=== PATIENT | female | born 1955 | race Caucasian/White ===

== ENCOUNTER 2016-08-29 13:35 | Observation (INO) | payer BC ==
[~2016-08-29] VITALS: Ht 160 cm; Wt 60.5 kg
[~2016-08-29 13:35] MED LIST: MULT-240 PO
[2016-08-29] MEDS ORDERED: SODIUM CHLORIDE 0.9% 1000ML 1,000 ML IV ONE (14:18)
[2016-08-29] MEDS ORDERED: SODIUM CHLORIDE 0.9% 1000ML 1,000 ML IV STA (14:18)
[2016-08-29 14:25] LABS: HEMATOCRIT 39.9 % (37-47); MEAN CELL VOLUME 82.6 fL (80-100); MEAN CORPUSCULAR HEMOGLOBIN 28.2 pg (25-34); MEAN CORPUSCULAR HGB CONC 34.1 g/dl (32-36); MEAN PLATELET VOLUME 11.3 fL (7.4-10.4); PLATELET COUNT 234 K/uL (130-400); RED BLOOD COUNT 4.83 M/uL (4.2-5.4); WHITE BLOOD COUNT 18.96 K/uL (4.8-10.8)
[2016-08-29 14:32] LABS: BLOOD UREA NITROGEN 15 mg/dl (7-18); CALCIUM 9.5 mg/dl (8.5-10.1); CARBON DIOXIDE 28 mmol/L (21-32); CHLORIDE 105 mmol/L (98-107); GLUCOSE 121 mg/dl (70-99); POTASSIUM 3.6 mmol/L (3.5-5.1); SODIUM 142 mmol/L (136-145)
[2016-08-29 14:33] LABS: BUN/CREATININE RATIO 11.5 (10-20)
[2016-08-29 14:42] LABS: ALKALINE PHOSPHATASE 94 U/L (45-117); ALT/SGPT 23 U/L (12-78); AST/SGOT 18 U/L (15-37)
--- NOTE | 2016-08-29 14:52 | DIAGNOSTIC IMAGING REPORT ---
CHEST ONE VIEW PORTABLE CLINICAL HISTORY: CHEST PAIN dyspnea COMPARISON STUDY: No previous studies for comparison. FINDINGS: The bones soft tissues and hemidiaphragms are normal. The cardiomediastinal silhouette is normal. The lungs are clear. The pulmonary vasculature is normal. IMPRESSION: Negative chest. Electronically signed by: Ghassan Huynh M.D. 08/29/2016 2:51 PM Dictated Date/Time: 08/29/2016 2:51 PM
--- NOTE | 2016-08-29 15:05 | DIAGNOSTIC IMAGING REPORT ---
HEAD CT NONCONTRAST CT DOSE: 729.78 mGycm HISTORY: Mental status change syncope TECHNIQUE: Multiaxial CT images of the head were performed without the use of intravenous contrast. Comparison: None. Findings: Mild mucosal thickening posterior ethmoid air cells are main sinuses are clear The calvarium and skull base are intact. The ventricles and sulci are within normal limits. There is no mass, hematoma, midline shift, or acute infarct. Impression: No acute intracranial abnormality. Electronically signed by: Ghassan Huynh M.D. 08/29/2016 3:04 PM Dictated Date/Time: 08/29/2016 3:02 PM
[2016-08-29 15:10] LABS: BASO ABS # 0.49 K/uL (0-0.2); BASOPHIL % 2.6 %; COMPLETE YES; EOSINOPHIL % 2.6 %; LYMPH ABS # 2.12 K/uL (1.2-3.4); LYMPHOCYTE % 11.2 %; META ABS # 1.31 K/uL (0-0); METAMYELOCYTE % 6.9 %; MYELOCYTE % 3.4 %; NEUTROPHILS % 73.3 %
[2016-08-29] MEDS ORDERED: ONDANSETRON INJ 2 MG/ML 2 ML VIAL IV STA (15:24)
[2016-08-29] MEDS ORDERED: MULT-506 PO (16:29)
[2016-08-29] MEDS ORDERED: PROMETHAZINE HCL INJ 12.5 MG in SODIUM CHLORIDE 0.9% 50ML 50 ML IV PRN (16:30)
[2016-08-29] MEDS ORDERED: ACETAMINOPHEN 325 MG TAB PO PRN (16:30)
--- NOTE | 2016-08-29 16:38 | DIAGNOSTIC IMAGING REPORT ---
CT SCAN OF THE CERVICAL SPINE CLINICAL HISTORY: Trauma. Neck pain. COMPARISON STUDY: No priors. TECHNIQUE: CT scan of the cervical spine is performed from the skull base to the upper thoracic spine. Images are reviewed in the axial, sagittal, and coronal planes. IV contrast was not administered for this examination. CT DOSE: 211.80 mGy.cm FINDINGS: Skeletal structures: The skeletal structures are osteopenic. There is no evidence of fracture or subluxation involving the cervical spine. Vertebral body height is maintained. There is minimal anterolisthesis at C3-C4. Alignment is otherwise preserved. There is straightening of the cervical lordosis. The odontoid process and lateral masses are intact. The atlantoaxial articulation is preserved noting mild productive degenerative change. The spinous processes appear intact. Anterior osteophytes are seen from C4 to C7. Degenerative sclerosis is noted at C5-C6. Mild multilevel facet arthropathy is observed. Intervertebral discs: Moderate degenerative disc space narrowing seen from C4 -C5 through C6-C7. The remaining disc spaces are well maintained. Central canal: Posterior disc osteophyte complexes at C4-C5, C5-C6, and C6-C7 likely contribute to mild acquired compromise of the central canal. Soft tissues: The prevertebral and paraspinous soft tissues are within normal limits. Calvarium: The visualized calvarium at the skull base appears intact. Brain parenchyma: Partially visualized brain parenchyma the skull base is within normal limits. Sinuses and mastoids: The visualized paranasal sinuses are clear. The mastoid air cells are well pneumatized. Lung apices: Clear as visualized. IMPRESSION: 1. There is no evidence of fracture or subluxation involving the cervical spine. 2. Osteopenia and spondylotic change as above. Electronically signed by: Andres Rutledge M.D. 08/29/2016 4:36 PM Dictated Date/Time: 08/29/2016 4:34 PM
--- NOTE | 2016-08-29 16:53 | EMERGENCY ROOM VISIT NOTE ---
History Report prepared by Matty: Elva Catalan Under the Supervision of: Dr. Jeffy Mcclendon M.D. 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 She states that she donated one unit of blood earlier today. The patient felt well prior to giving blood. She states that she was walking downstairs to get a sandwich when she "didn't feel right." She sat down then she experienced nausea and vomiting. She doesn't remember what happened next and she woke up on the floor. The patient does not remember hitting her head, but she does think that she experienced LOC. No one witnessed the event. She denies biting her tongue or experiencing urinary incontinence. The patient denies being in any pain currently. She denies headache, neck pain, chest pain, shortness of breath, and numbness or weakness. The patient's adds that the patient had a bowel movement here and it was normal. The patient that she still does not feel right and adds that she is anxious from the feeling. The patient's states that she is very active and healthy. He also states that she has given blood many times in the past without any difficulties. 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 A total of 10 systems reviewed and were otherwise negative. Past Medical & Surgical Medical Problems: (1) CKD (chronic kidney disease), stage III Surgical Problems: (1) H/O tubal ligation (2) History of appendectomy (3) [place] teeth extracted Old medical records were reviewed. Nurse's notes were reviewed and I agree with. Denies history cardiac disease or neurologic problems Family History No pertinent family history Social History Smoking Status: Former Smoker Drug Use: none Marital Status: Housing Status: lives with family Current/Historical Medications Scheduled Multivitamin (Multivitamin), 1 TAB PO DAILY Allergies Coded Allergies: Codeine (Verified Allergy, Unknown, ., 09/10/14) Physical Exam Vital Signs Date Time Temp Pulse Resp B/P Pulse Ox O2 Delivery O2 Flow Rate FiO2 08/29/16 17:02 08/29/16 16:59 60 122/68 75 128/80 69 125/79 08/29/16 15:18 63 17 100/56 99 Room Air 08/29/16 14:39 53 16 115/65 98 Room Air 08/29/16 13:52 56 08/29/16 13:50 36.7 50 16 114/50 100 Room Air Physical Exam General: Well developed well nourished mildly ill-appearing older female complaining that she doesn't feel well but in no respiratory distress, breathing comfortably on room air. Normal speech HEENT: Normal cephalic atraumatic. Pupils are equal round and reactive to light. Scleara anicteric. Extraocular movements are intact. Oropharynx is pink with moist mucous membranes. No swelling of the mouth lips or tongue. Neck: Supple with a midline trachea. No meningeal signs or stiffness, no JVD or bruits. No Stridor. Chest: Clear to auscultation bilaterally. No wheezes or rhonchi. No increased work of breathing. Heart: regular rate and rhythm. Abdomen: Soft nontender, nondistended without rebound guarding or rigidity. Extremities: No cyanosis clubbing or edema. No calf tenderness or assymetry Spine/Back. Non tender to palpation. No CVA tenderness Skin: Good turgor without rashes. Neurologic exam: Cranial nerves two through 12 are intact. Motor and sensation are intact and symmetrical throughout. Medical Decision & Procedures ER Provider Diagnostic Interpretation: X ray results as stated below per my interpretation and radiologist interpretation. Other radiology results as stated below per my review and radiologist interpretation: CHEST ONE VIEW PORTABLE IMPRESSION: Negative chest. Electronically signed by: Ghassan Huynh M.D. 08/29/2016 2:51 PM Dictated Date/Time: 08/29/2016 2:[address] NONCONTRAST Impression: No acute intracranial abnormality. Electronically signed by: Ghassan Huynh M.D. 08/29/2016 3:04 PM Dictated Date/Time: 08/29/2016 3:[address] SCAN OF THE CERVICAL SPINE IMPRESSION: 1. There is no evidence of fracture or subluxation involving the cervical spine. 2. Osteopenia and spondylotic change as above. Electronically signed by: Andres Rutledge M.D. 08/29/2016 4:36 PM Dictated Date/Time: 08/29/2016 4:34 PM Laboratory Results 08/29/16 13:50 Red Blood Count 4.83, Mean Corpuscular Volume 82.6, Mean Corpuscular Hemoglobin 28.2, Mean Corpuscular Hemoglobin Concent 34.1, Mean Platelet Volume 11.3 08/29/16 13:50 Test 08/29/16 13:50 08/29/16 14:30 08/29/16 16:40 White Blood Count 18.96 K/uL (4.8-10.8) Red Blood Count 4.83 M/uL (4.2-5.4) Hemoglobin 13.6 g/dL (12.0-16.0) Hematocrit 39.9 % (37-47) Mean Corpuscular Volume 82.6 fL (80-100) Mean Corpuscular Hemoglobin 28.2 pg (25-34) Mean Corpuscular Hemoglobin Concent 34.1 g/dl (32-36) Platelet Count 234 K/uL (130-400) Mean Platelet Volume 11.3 fL (7.4-10.4) RDW Standard Deviation 42.9 fL (36.4-46.3) RDW Coefficient of Variation 14.2 % (11.5-14.5) Neutrophils % (Manual) 73.3 % Lymphocytes % (Manual) 11.2 % Eosinophils % (Manual) 2.6 % Basophils % (Manual) 2.6 % Metamyelocytes % 6.9 % Myelocytes % 3.4 % Neutrophils # (Manual) 13.90 K/uL (1.4-6.5) Total Absolute Neutrophils 13.90 K/uL (1.4-6.5) Lymphocytes # (Manual) 2.12 K/uL (1.2-3.4) Total Absolute Lymphocytes 2.12 K/uL (1.2-3.4) Eosinophils # (Manual) 0.49 K/uL (0-0.5) Basophils # (Manual) 0.49 K/uL (0-0.2) Metamyelocytes # 1.31 K/uL (0-0) Myelocytes # 0.64 K/uL (0-0) Anion Gap 9.0 mmol/L (3-11) Est Creatinine Clear Calc Drug Dose 38.1 ml/min Estimated GFR () 51.6 Estimated GFR (Non- 44.6 BUN/Creatinine Ratio 11.5 (10-20) Calcium Level 9.5 mg/dl (8.5-10.1) Total Bilirubin 0.4 mg/dl (0.2-1) Direct Bilirubin < 0.1 mg/dl (0-0.2) Aspartate Amino Transf (AST/SGOT) 18 U/L (15-37) Alanine Aminotransferase (ALT/SGPT) 23 U/L (12-78) Alkaline Phosphatase 94 U/L (45-117) Total Protein 6.8 gm/dl (6.4-8.2) Albumin 3.9 gm/dl (3.4-5.0) Lipase 178 U/L (73-393) Bedside Troponin I 0.020 ng/ml (0-0.045) Urine Color YELLOW Urine Appearance TURBID (CLEAR) Urine pH >= 9.0 (4.5-7.5) Urine Specific [place] 1.009 (1.000-1.030) Urine Protein NEG (NEG) Urine Glucose (UA) NEG (NEG) Urine Ketones NEG (NEG) Urine Occult Blood NEG (NEG) Urine Nitrite NEG (NEG) Urine Bilirubin NEG (NEG) Urine Urobilinogen NEG (NEG) Urine Leukocyte Esterase TRACE (NEG) Urine WBC (Auto) 5-10 /hpf (0-5) Urine RBC (Auto) 0-4 /hpf (0-4) Urine Hyaline Casts (Auto) 1-5 /lpf (0-5) Urine Epithelial Cells (Auto) >30 /lpf (0-5) Urine Bacteria (Auto) NEG (NEG) Urine Renal Epithelial Cells /lpf (0-5) Laboratory studies as stated above per my review. Medications Administered Medications (Trade) Dose Ordered Sig/Kulwinder Route Start Time Stop Time Status Last Admin Dose Admin Sodium Chloride 1,000 ml @ 999 mls/hr Q1H1M STAT IV 08/29/16 14:18 08/29/16 15:18 DC 08/29/16 14:18 999 MLS/HR Sodium Chloride (Nss 1000ml) 1,000 ml @ 150 mls/hr Q6H40M ONCE IV 08/29/16 14:18 2/1/17 20:57 08/29/16 14:18 150 MLS/HR Ondansetron HCl (Zofran Inj) 4 mg NOW STAT IV 08/29/16 15:24 08/29/16 15:25 DC 08/29/16 15:32 4 MG ECG Indication: syncope Rate (beats per minute): 54 Rhythm: sinus bradycardia Findings: no acute ischemic change, prolonged QT (mild) Comparison ECG Date: no prior available ED Course 1407: Past medical records reviewed. The patient was evaluated in room B2, and a complete history and physical examination were performed. 1418: Ordered Sodium Chloride 1000 ml @ 150 mls/hr IV, Sodium Chloride 1000 ml @ 999 mls/hr IV 1524: Ordered Zofran Inj 4 mg IV 1528: I reassessed the patient. She is getting her EKG done currently. 1544: Upon reevaluation, the patient is resting comfortably. She feels a little better, but now has pain in her neck. I discussed the results and treatment plan with the patient. She verbalized agreement of the treatment plan. The patient will be evaluated for further management. 1553: I discussed the patient's case with Manasa Crane. She is going to evaluate the patient for further management. Medical Decision Differentials include, but are not limited to; syncope, arrhythmia, anemia, trauma, intracranial process, electrolyte or metabolic abnormality. This patient comes in as described above. She was placed in room B2. She is here for treatment and evaluation of what sounds like a syncopal episode. She gave blood and then went to for coffee passed out she may have hit her head or neck. She felt very ill upon arrival she felt fine in the morning prior to giving blood. She's never had anything like this before and she has given blood multiple times. IV access established and she was given an IV normal saline bolus and hourly rate of IV normal saline. Her vital signs remained stable. EKG does not suggest acute coronary syndrome or arrhythmia. Her QTc is mildly prolonged and I have no o ld EKG for comparison. Her troponin is not elevated. White count is elevated at 18. This could be a stress reaction and I cannot 100% rule out infection but she's had no infectious type symptoms prior and is afebrile chest x-ray was unremarkable and does not suggest congestive heart failure, pneumonia, or pneumothorax. CAT scan of her head and neck were unremarkable and there is no traumatic or acute process seen. She has started to feel better after fluids. I do think she needs to be admitted for observation and to rule out arrhythmia or other etiology. I have discussed case with the [facility] team and they will see her in the ER. Consults Time Called: 1550 Consulting Physician: Manasa Crane Returned Call: 1557 I discussed the patient's case with Manasa Crane. She is going to evaluate the patient for further management. Impression Primary Impression: Syncope Scribe Attestation The scribe's documentation has been prepared under my direction and personally reviewed by me in its entirety. I confirm that the note above accurately reflects all work, treatment, procedures, and medical decision making performed by me. Departure Information Dispostion Being Evaluated By Hospitalist Referrals Lucila Claudio D.O. (PCP) Patient Instructions My [facility] Problem Qualifiers Primary Impression: Syncope Syncope type: unspecified Qualified Codes: R55 - Syncope and collapse
--- NOTE | 2016-08-29 17:00 | History and Physical ---
History & Physical Date & Time of Service: Aug 29, 2016 at 16:43 Chief Complaint: Passed Out Primary Care Physician: Lucila Claudio D.O. History of Present Illness 61 year old female who presents to the ER for evaluation of a syncopal event. Patient donated blood today which she reports she does on a routine basis ( about every 3 months). Patient reports she woke up this morning feeling in her usual state of health. She ate breakfast and then went to donate blood. She reports she had something to eat after donating and reports that after she stood up she did not feel well. She felt very lightheaded. She sat down on the stool and the next thing she knew she woke up on the floor. She reports she was very clammy. She also had nausea and had 2 episodes of vomiting. She denies loss of bowel or bladder function. No reported seizure like activity. She denies associated chest pain or shortness of breath. Reports she has been feeling well recently. No fever or chills. Denies abdominal pain or diarrhea. No urinary symptoms. In the ER, vitals are stable. WBC is 18K without obvious source of infection. Head CT is negative. Creat is 1.3 (baseline 1.0-1.1). Patient was given IVF and Zofran. Past Medical/Surgical History Medical Problems: (1) CKD (chronic kidney disease), stage III Status: Chronic Surgical Problems: (1) H/O tubal ligation Status: Chronic (2) History of appendectomy Status: Chronic (3) [place] teeth extracted Status: Chronic Family History no family history of premature CAD, DM, or CVA Social History Smoking Status: Former Smoker Alcohol Use: occasionally Immunizations History of Influenza Vaccine: Yes Influenza Vaccine Date: May 02, 2016 History of Tetanus Vaccine?: Yes Tetanus Immunization Date: Jul 15, 2008 Multi-Drug Resistant Organisms History of MDRO: No Allergies Coded Allergies: Codeine (Verified Allergy, Unknown, ., 09/10/14) Home Medications Scheduled Multivitamin (Multivitamin), 1 TAB PO DAILY Review of Systems 10 point review of systems was completed with the pertinent positives and negatives noted per the HPI Physical Exam Vital Signs Date Time Temp Pulse Resp B/P Pulse Ox O2 Delivery O2 Flow Rate FiO2 08/29/16 15:18 63 17 100/56 99 Room Air 08/29/16 14:39 53 16 115/65 98 Room Air 08/29/16 13:52 56 08/29/16 13:50 36.7 50 16 114/50 100 Room Air General Appearance: no apparent distress Head: normocephalic Eyes: normal inspection ENT: hearing grossly normal Neck: supple, no JVD Respiratory/Chest: lungs clear, normal breath sounds, no respiratory distress Cardiovascular: regular rate, rhythm, no edema, normal peripheral pulses Abdomen/GI: normal bowel sounds, non tender, soft Extremities/Musculoskelatal: normal inspection, no calf tenderness Neurologic/Psych: no motor/sensory deficits, alert, normal mood/affect, oriented x 3 Skin: normal color, warm/dry Diagnostics Laboratory Results Results Past 24 Hours Test 08/29/16 13:50 08/29/16 14:30 Range/Units White Blood Count 18.96 4.8-10.8 K/uL Red Blood Count 4.83 4.2-5.4 M/uL Hemoglobin 13.6 12.0-16.0 g/dL Hematocrit 39.9 37-47 % Mean Corpuscular Volume 82.6 80-100 fL Mean Corpuscular Hemoglobin 28.2 25-34 pg Mean Corpuscular Hemoglobin Concent 34.1 32-36 g/dl Platelet Count 234 130-400 K/uL Mean Platelet Volume 11.3 7.4-10.4 fL RDW Standard Deviation 42.9 36.4-46.3 fL RDW Coefficient of Variation 14.2 11.5-14.5 % Neutrophils % (Manual) 73.3 % Lymphocytes % (Manual) 11.2 % Eosinophils % (Manual) 2.6 % Basophils % (Manual) 2.6 % Metamyelocytes % 6.9 % Myelocytes % 3.4 % Neutrophils # (Manual) 13.90 1.4-6.5 K/uL Total Absolute Neutrophils 13.90 1.4-6.5 K/uL Lymphocytes # (Manual) 2.12 1.2-3.4 K/uL Total Absolute Lymphocytes 2.12 1.2-3.4 K/uL Eosinophils # (Manual) 0.49 0-0.5 K/uL Basophils # (Manual) 0.49 0-0.2 K/uL Metamyelocytes # 1.31 0-0 K/uL Myelocytes # 0.64 0-0 K/uL Sodium Level 142 136-145 mmol/L Potassium Level 3.6 3.5-5.1 mmol/L Chloride Level 105 98-107 mmol/L Carbon Dioxide Level 28 21-32 mmol/L Anion Gap 9.0 3-11 mmol/L Blood Urea Nitrogen 15 7-18 mg/dl Creatinine 1.30 0.60-1.20 mg/dl Est Creatinine Clear Calc Drug Dose 38.1 ml/min Estimated GFR () 51.6 Estimated GFR (Non- 44.6 BUN/Creatinine Ratio 11.5 10-20 Random Glucose 121 70-99 mg/dl Calcium Level 9.5 8.5-10.1 mg/dl Total Bilirubin 0.4 0.2-1 mg/dl Direct Bilirubin < 0.1 0-0.2 mg/dl Aspartate Amino Transf (AST/SGOT) 18 15-37 U/L Alanine Aminotransferase (ALT/SGPT) 23 12-78 U/L Alkaline Phosphatase 94 45-117 U/L Total Protein 6.8 6.4-8.2 gm/dl Albumin 3.9 3.4-5.0 gm/dl Lipase 178 73-393 U/L Bedside Troponin I 0.020 0-0.045 ng/ml Microbiology Results 08/29/16 Blood Culture, [place] Batch Pending 08/29/16 Blood Culture, [place] Batch Pending Diagnostic Radiology CT Head Impression: No acute intracranial abnormality. CXR IMPRESSION: Negative chest. CT C-SPINE IMPRESSION: 1. There is no evidence of fracture or subluxation involving the cervical spine. 2. Osteopenia and spondylotic change as above. Impression Assessment and Plan SYNCOPE - admit to tele - patient presenting with syncopal event shortly after donating blood; nothing in the history to suggest seizure like activity - suspect vasovagal vs orthostasis/hypovolemia - creat mildly bumped at 1.3 (baseline 1.0 - 1.1), will check orthostatic BPs and give IVF - no acute ST changes on EKG, prolonged QTC noted - continue to monitor on tele - mild bradycardia noted, however at baseline per clinic records - will continue to cycle cardiac enzymes, check resting echo - head CT negative LEUKOCYTOSIS - likely stress induced - no obvious source for infection currently; U/A pending - obtain urine and blood cultures CKD STAGE III - baseline creat 1.0 - 1.1 - 1.3 today - IVF, follow up renal functions in the AM DVT PROPHYLAXIS - SCDs DISPO - The patient will be placed as observation status for now until further work up is complete. ATTENDING ADDENDUM care coordinated with ISI Justin please refer to her notes for full details, I agree with her notes patient seen and examined, records reviewed by myself as well on exam, patient seen resting in bed with Dylan at bedside states she feels much better since admission not lightheaded anymore when standing denies fever/chills, chest pain, palpitations, dizziness, nausea tolerated clears well in good spirits no other symptoms VS noted and reviewed oriented x 3, not in distress, speaks in sentences with no effort nor accessory muscle use normal rate, regular rhythm, no murmurs clear breath sounds bilaterally non distended, soft, nontender mild hematoma left hand dorsal aspect no bipedal edema, erythema, warmth no neuro deficits WBC 18.9 crea 1.3 ASSESSMENT/PLAN> SYNCOPE preceded with lightheadedness, nausea after blood donation - likely orthostasis, volume depletion r/o underlying infection r/o arrhythmia - IV fluids ff up cultures tele monitoring, echo CKD 3 - IV fluids - monitor crea other diagnoses and plan of care as per ISI Justin's notes Dontae Jones MD VTE Prophylaxis VTE Risk Assessment Done? Y/N: Yes Risk Level: Low
[2016-08-29 17:11] LABS: URINE APPEARANCE TURBID (CLEAR); URINE BILIRUBIN NEG (NEG); URINE COLOR YELLOW; URINE EPITHELIAL CELL AUTO >30 /lpf (0-5); URINE NITRITE NEG (NEG); URINE PH >= 9.0 (4.5-7.5); URINE SPECIFIC GRAVITY 1.009 (1.000-1.030); UROBILINOGEN NEG (NEG)
[2016-08-29 17:23] LABS: MANUAL MICROSCOPIC REQUIRED? NO; REVIEW REQ? YES
[2016-08-29 18:20] VITALS: BP 111/68; PULSE 62; TEMP 36.7; Ht 160 cm; Wt 60.5 kg
[2016-08-29] MEDS: SODIUM CHLORIDE 0.9% 1000ML 1,000 ML IV SCH (18:30)
[2016-08-29 19:52] VITALS: BP 123/74; PULSE 61; TEMP 36.9; O2SAT 99
[2016-08-29] MEDS ORDERED: IV FLUIDS COMPLETED PRN (21:00)
[2016-08-29 22:14] VITALS: BP_SYST 108; BP_SYST 111; BP_SYST 117; BP_DIAS 66; BP_DIAS 71; BP_DIAS 72; PULSE 67; PULSE 74; PULSE 76
[2016-08-29 23:32] VITALS: BP 96/60; PULSE 73; TEMP 36.9; O2SAT 96
[2016-08-30] VITALS: O2SAT 98
[2016-08-30] MEDS: SODIUM CHLORIDE 0.9% 1000ML 1,000 ML IV SCH (02:21)
[2016-08-30 04:00] VITALS: BP 104/60; PULSE 67; TEMP 36.8; O2SAT 96
[2016-08-30 07:27] LABS: HEMATOCRIT 33.4 % (37-47); MEAN CELL VOLUME 83.9 fL (80-100); MEAN CORPUSCULAR HEMOGLOBIN 28.6 pg (25-34); MEAN CORPUSCULAR HGB CONC 34.1 g/dl (32-36); MEAN PLATELET VOLUME 11.2 fL (7.4-10.4); PLATELET COUNT 182 K/uL (130-400); RED BLOOD COUNT 3.98 M/uL (4.2-5.4); WHITE BLOOD COUNT 27.22 K/uL (4.8-10.8)
[2016-08-30 07:40] VITALS: BP 94/60; PULSE 61; TEMP 36.3; O2SAT 95
[2016-08-30 08:11] LABS: BUN/CREATININE RATIO 9.6 (10-20); CALCIUM 8.3 mg/dl (8.5-10.1); POTASSIUM 4.1 mmol/L (3.5-5.1)
[2016-08-30] MEDS ORDERED: MULTIVITAMIN TAB PO SCH (09:00)
[2016-08-30 09:06] LABS: BASO % 1.2 %; BASO ABS # 0.33 K/uL (0-0.2); EOS % 0.5 %; HYPERSEGMENTED POLYS 1+; IG% 3.2 %; LYMPH % 6.9 %; LYMPH ABS # 1.88 K/uL (1.2-3.4); MONO % 1.5 %; NEUT % 86.7 %; TOXIC GRANULATION 1+
[2016-08-30 12:02] VITALS: BP 110/74; PULSE 55; TEMP 36.6; O2SAT 97
--- NOTE | 2016-08-30 12:50 | ECHOCARDIOGRAM REPORT ---
*NOTICE TO RECEIVING REPUBLICAN AGENCY This information is strictly Confidential and protected under [place] law. [place] law prohibits you from making any further disclosure of this information unless further disclosure is expressly permitted by the written consent of the person to whom it pertains or is authorized by law. A general authorization for the release of medical or other information is not sufficient for this purpose. Hospital accepts no responsibility if the information is made available to any other person, INCLUDING THE PATIENT. Interpretation Summary * Name: Galdino LEDEZMA Study Date: 08/30/2016 11:02 AM BP: 94/60 mmHg * Patient Location: [facility]\S\N284\S\2 HR: 61 * : 1955 (M/d/yyyy) Gender: Female Height: 63 in * Age: 61 yrs Ethnicity: [place] Weight: 134 lb * Ordering Physician: Manasa Justin * Referring Physician: Self, Referred * Performed By: Cris Parker RCS * * Reason For Study: Syncope * BSA: 1.6 m2 * This was essentially a normal study. * -- Conclusions -- * The left ventricle is normal in size. * There is normal left ventricular wall thickness. * Left ventricular systolic function is normal. * The left ventricular wall motion is normal. * Ejection Fraction = 60-65%. Procedure Details * A complete two-dimensional transthoracic echocardiogram was performed (2D, M-mode, Doppler and color flow Doppler). Left Ventricle * The left ventricle is normal in size. * There is normal left ventricular wall thickness. * Left ventricular systolic function is normal. * Ejection Fraction = 60-65%. * The left ventricular wall motion is normal. Right Ventricle * The right ventricle is normal in size and function. Atria * The left atrial size is normal. * Right atrial size is normal. * No ASD detected; PFO is not assessed. Mitral Valve * The mitral valve anatomy is normal. * There is no mitral valve stenosis. * There is trace mitral regurgitation. Tricuspid Valve * The tricuspid valve anatomy is normal. * There is no tricuspid stenosis. * There is mild tricuspid regurgitation. * Doppler findings do not suggest pulmonary hypertension. Aortic Valve * The aortic valve is trileaflet. * No hemodynamically significant valvular aortic stenosis. * No aortic regurgitation is present. Pulmonic Valve * The pulmonic valve is not well visualized. Great Vessels * The aortic root is normal size. Pericardium/Pleural * There is no pericardial effusion. Great Vessels * Normal inferior vena cava diameter and respiratory variation suggests normal central venous pressure. MMode 2D Measurements and Calculations IVSd 0.91 cm IVSs 1.1 cm LVIDd 4.4 cm LVIDs 2.8 cm LVPWd 0.95 cm LVPWs 1.2 cm IVS/LVPW 0.96 FS 37.5 % EDV(Teich) 88.4 ml ESV(Teich) 28.5 ml EF(Teich) 67.7 % EDV(cubed) 86.0 ml ESV(cubed) 21.0 ml EF(cubed) 75.5 % % IVS thick 20.6 % % LVPW thick 25.8 % LV mass(C)d 134.7 grams LV mass(C)dI 82.6 grams/m\S\2 LV mass(C)s 90.6 grams LV mass(C)sI 55.6 grams/m\S\2 CO(Teich) 3.5 l/min CI(Teich) 2.1 l/min/m\S\2 SV(Teich) 59.8 ml SI(Teich) 36.7 ml/m\S\2 CO(cubed) 3.8 l/min CI(cubed) 2.3 l/min/m\S\2 SV(cubed) 65.0 ml SI(cubed) 39.8 ml/m\S\2 Ao root diam 3.0 cm Ao root area 6.9 cm\S\2 ACS 1.9 cm LA dimension 2.4 cm LA/Ao 0.81 LVAd ap4 27.1 cm\S\2 LVLd ap4 7.8 cm EDV(MOD-sp4) 77.0 ml LVAs ap4 13.7 cm\S\2 LVLs ap4 6.0 cm ESV(MOD-sp4) 26.0 ml EF(MOD-sp4) 66.2 % LVAd ap2 24.4 cm\S\2 LVLd ap2 7.4 cm EDV(MOD-sp2) 67.0 ml LVAs ap2 12.9 cm\S\2 LVLs ap2 5.8 cm ESV(MOD-sp2) 25.0 ml EF(MOD-sp2) 62.7 % CO(MOD-sp4) 3.0 l/min CI(MOD-sp4) 1.8 l/min/m\S\2 SV(MOD-sp4) 51.0 ml SI(MOD-sp4) 31.3 ml/m\S\2 CO(MOD-sp2) 2.4 l/min CI(MOD-sp2) 1.5 l/min/m\S\2 SV(MOD-sp2) 42.0 ml SI(MOD-sp2) 25.7 ml/m\S\2 Doppler Measurements and Calculations MV E max armando 89.8 cm/sec MV A max armando 66.7 cm/sec MV E/A 1.3 MV P1/2t max armando 96.8 cm/sec MV P1/2t 104.8 msec MVA(P1/2t) 2.1 cm\S\2 MV dec slope 270.5 cm/sec\S\2 MV dec time 0.23 sec Ao V2 max 114.6 cm/sec Ao max PG 5.3 mmHg Ao max PG (full) 0.96 mmHg LV V1 max PG 4.3 mmHg LV V1 max 103.7 cm/sec PA V2 max 86.0 cm/sec PA max PG 3.0 mmHg TR max armando 234.0 cm/sec
--- NOTE | 2016-08-30 12:57 | Discharge Instructions ---
Discharge Instructions Admission Reason for Admission: Syncope (Manasa Justin CRNP) Discharge Discharge Diagnosis / Problem: Passed Out (Manasa Justin CRNP) Discharge Goals Goal(s): Decrease discomfort, Improve function (Manasa Justin CRNP) Activity Recommendations Activity Limitations: resume your previous activity . (Manasa Justin CRNP) Instructions / Follow-Up Instructions / Follow-Up Follow Up with Dr. Claudio SaturdaySeptember 05 at 11:30 You were admitted to the hospital for evaluation of a syncopal event (passing out) This was felt to be due to your recent blood donation. We did find your WBC to be elevated however no obvious signs of infection. Your blood and urine cultures are still pending - if these are positive, you will receive a phone call. Your PCP will recheck your bloodwork and if it does not improve, you will need to see hematology. If you develop a fever, call your PCP or return to the emergency room. (Manasa Justin CRNP) Current Hospital Diet Patient's current hospital diet: Regular Diet (Manasa Justin CRNP) Discharge Diet Recommended Diet: Regular Diet (Manasa Justin CRNP) Pending Studies Studies pending at discharge: yes List of pending studies: urine and blood cultures (Manasa Justin CRNP) Medical Emergencies . Who to Call and When: Medical Emergencies: If at any time you feel your situation is an emergency, please call 911 immediately. . (Manasa Justin CRNP) Non-Emergent Contact Non-Emergency issues call your: Primary Care Provider Call Non-Emergent contact if: you have a fever, you have any medication questions . (Manasa Justin CRNP) . "Provider Documentation" section prepared by Manasa Justin. (Manasa Justin CRNP) VTE Core Measure Inpt VTE Proph given/why not?: SCD's (Manasa Justin CRNP)
--- NOTE | 2016-08-30 14:00 | Hospitalist Progress Note ---
Hospitalist Progress Note Date of Service Aug 30, 2016. (Manasa Justin ., ISI) Subjective Patient seen and examined. Feeling much improved. No further lightheadedness, dizziness, or syncopal events. She denies chest pain and shortness of breath. She denies fever and chills. No abdominal pain or nausea. (Manasa Justin ., ISI) Pt was seen and examined by me. Agreed With Manasa SNOWDEN exam, assessment and plan. Pt said that she feels fine. Denies any syncopal episodes, dizziness, palpitation and chest pain. She is very anxious to go home. Her WBC is high, 27K. she is afebrile, blood cx has no growth so far. Case discussed with hematology that recommends to repeat cbc in 1 to 2 weeks, and if wbc stays elevating, pt will see dr. Chavez on consultation as an outpatient. Pt will be discharge home today. advised pt that if she develops any fever, chills or urinary symptoms to come back to the ER. Please repeat CBC in 1 week. (Rosa Martinez M.D.) Objective Vital Signs Date Time Temp Pulse Resp B/P Pulse Ox O2 Delivery O2 Flow Rate FiO2 08/30/16 12:02 36.6 55 20 110/74 97 Room Air 08/30/16 12:00 Room Air 08/30/16 07:45 Room Air 08/30/16 07:40 36.3 61 20 94/60 95 Room Air 08/30/16 04:00 96 Room Air 08/30/16 04:00 36.8 67 20 104/60 96 Room Air 08/30/16 00:00 98 Room Air 08/29/16 23:32 36.9 73 18 96/60 96 Room Air 08/29/16 22:14 67 108/66 74 111/71 76 117/72 08/29/16 20:00 Room Air 08/29/16 19:52 36.9 61 20 123/74 99 Room Air 08/29/16 18:20 36.7 62 18 111/68 Room Air 08/29/16 18:00 78 15 98 08/29/16 17:02 08/29/16 16:59 60 122/68 75 128/80 69 125/79 08/29/16 15:18 63 17 100/56 99 Room Air 08/29/16 14:39 53 16 115/65 98 Room Air 08/29/16 13:52 56 08/29/16 13:50 36.7 50 16 114/50 100 Room Air (Manasa Justin CRNP) Physical Exam General Appearance: no apparent distress Eyes: normal inspection ENT: hearing grossly normal Neck: supple, no JVD Respiratory/Chest: lungs clear, normal breath sounds, no respiratory distress Cardiovascular: regular rate, rhythm, no edema Abdomen: normal bowel sounds, non tender, soft Neurologic/Psychiatric: no motor/sensory deficits, alert, normal mood/affect, oriented x 3 Skin: normal color, warm/dry (Manasa Justin CRNP) Laboratory Results Last 24 Hours Test 08/29/16 13:50 08/29/16 14:30 08/29/16 16:40 08/29/16 19:00 White Blood Count 18.96 K/uL Red Blood Count 4.83 M/uL Hemoglobin 13.6 g/dL Hematocrit 39.9 % Mean Corpuscular Volume 82.6 fL Mean Corpuscular Hemoglobin 28.2 pg Mean Corpuscular Hemoglobin Concent 34.1 g/dl Platelet Count 234 K/uL Mean Platelet Volume 11.3 fL RDW Standard Deviation 42.9 fL RDW Coefficient of Variation 14.2 % Neutrophils % (Manual) 73.3 % Lymphocytes % (Manual) 11.2 % Eosinophils % (Manual) 2.6 % Basophils % (Manual) 2.6 % Metamyelocytes % 6.9 % Myelocytes % 3.4 % Neutrophils # (Manual) 13.90 K/uL Total Absolute Neutrophils 13.90 K/uL Lymphocytes # (Manual) 2.12 K/uL Total Absolute Lymphocytes 2.12 K/uL Eosinophils # (Manual) 0.49 K/uL Basophils # (Manual) 0.49 K/uL Metamyelocytes # 1.31 K/uL Myelocytes # 0.64 K/uL Sodium Level 142 mmol/L Potassium Level 3.6 mmol/L Chloride Level 105 mmol/L Carbon Dioxide Level 28 mmol/L Anion Gap 9.0 mmol/L Blood Urea Nitrogen 15 mg/dl Creatinine 1.30 mg/dl Est Creatinine Clear Calc Drug Dose 38.1 ml/min Estimated GFR () 51.6 Estimated GFR (Non- 44.6 BUN/Creatinine Ratio 11.5 Random Glucose 121 mg/dl Calcium Level 9.5 mg/dl Total Bilirubin 0.4 mg/dl Direct Bilirubin < 0.1 mg/dl Aspartate Amino Transf (AST/SGOT) 18 U/L Alanine Aminotransferase (ALT/SGPT) 23 U/L Alkaline Phosphatase 94 U/L Total Protein 6.8 gm/dl Albumin 3.9 gm/dl Lipase 178 U/L Bedside Troponin I 0.020 ng/ml Urine Color YELLOW Urine Appearance TURBID Urine pH >= 9.0 Urine Specific [place] 1.009 Urine Protein NEG Urine Glucose (UA) NEG Urine Ketones NEG Urine Occult Blood NEG Urine Nitrite NEG Urine Bilirubin NEG Urine Urobilinogen NEG Urine Leukocyte Esterase TRACE Urine WBC (Auto) 5-10 /hpf Urine RBC (Auto) 0-4 /hpf Urine Hyaline Casts (Auto) 1-5 /lpf Urine Epithelial Cells (Auto) >30 /lpf Urine Bacteria (Auto) NEG Urine Renal Epithelial Cells /lpf Creatine Kinase MB Ratio Test 08/29/16 19:05 08/30/16 00:59 08/30/16 01:00 08/30/16 06:55 Creatine Kinase MB 1.4 ng/ml 0.9 ng/ml Troponin I < 0.015 ng/ml < 0.015 ng/ml Creatine Kinase MB Ratio White Blood Count 27.22 K/uL Red Blood Count 3.98 M/uL Hemoglobin 11.4 g/dL Hematocrit 33.4 % Mean Corpuscular Volume 83.9 fL Mean Corpuscular Hemoglobin 28.6 pg Mean Corpuscular Hemoglobin Concent 34.1 g/dl Platelet Count 182 K/uL Mean Platelet Volume 11.2 fL Neutrophils (%) (Auto) 86.7 % Lymphocytes (%) (Auto) 6.9 % Monocytes (%) (Auto) 1.5 % Eosinophils (%) (Auto) 0.5 % Basophils (%) (Auto) 1.2 % Neutrophils # (Auto) 23.77 K/uL Lymphocytes # (Auto) 1.88 K/uL Monocytes # (Auto) 0.41 K/uL Eosinophils # (Auto) 0.15 K/uL Basophils # (Auto) 0.33 K/uL RDW Standard Deviation 44.8 fL RDW Coefficient of Variation 14.5 % Immature Granulocyte % (Auto) 3.2 % Immature Granulocyte # (Auto) 0.89 K/uL Nucleated RBC Absolute Count (auto) 0.00 K/uL Nucleated Red Blood Cells % 0.0 % Hypersegmented Polys 1+ Toxic Granulation 1+ Peripheral Blood Smear Path Consult Sodium Level 144 mmol/L Potassium Level 4.1 mmol/L Chloride Level 112 mmol/L Carbon Dioxide Level 25 mmol/L Anion Gap 7.0 mmol/L Blood Urea Nitrogen 10 mg/dl Creatinine 1.00 mg/dl Est Creatinine Clear Calc Drug Dose 49.5 ml/min Estimated GFR () 70.9 Estimated GFR (Non- 61.2 BUN/Creatinine Ratio 9.6 Random Glucose 89 mg/dl Calcium Level 8.3 mg/dl Procalcitonin < 0.05 ng/mL Hepatitis C Antibody Screen NEG (Manasa Justin CRNP) Diagnostic Results ECHO: * -- Conclusions -- * The left ventricle is normal in size. * There is normal left ventricular wall thickness. * Left ventricular systolic function is normal. * The left ventricular wall motion is normal. * Ejection Fraction = 60-65%. (Manasa Justin CRNP) Assessment and Plan SYNCOPE - admitted to tele - patient presenting with syncopal event shortly after donating blood; nothing in the history to suggest seizure like activity - likely vasovagal vs orthostasis/hypovolemia - creat mildly bumped at 1.3 (baseline 1.0 - 1.1), improved to 1.0 today after IVF - orthostatic BPs negative - no acute ST changes on EKG, prolonged QTC noted - no arrhythmias on tele - mild bradycardia noted, however at baseline per clinic records - troponins negative, echo unremarkable - head CT negative LEUKOCYTOSIS - WBC 18K -> 27K - no obvious source of infection identified, has remained afebrile - urine and blood cultures pending - discussed with Dr. Davon Chavez - recommends repeating CBC in 1-2 weeks and if does not resolve, he will see her as an outpatient CKD STAGE III - baseline creat 1.0 - 1.1 - 1.3 -> 1.0 today DVT PROPHYLAXIS - SCDs DISPO - d/c today (Manasa Justin CRNP)
[2016-08-30 14:05] LABS: COMPLETE YES
--- NOTE | 2016-08-30 14:11 | Discharge Summary ---
Discharge Summary Admission Date: Aug 29, 2016 at 16:23 Discharge Date: Aug 30, 2016 Discharge Disposition: Home Principal Diagnosis: Syncope Secondary Diagnoses/Problems: Leukocytosis CKD stage III Procedures: CT Head Impression: No acute intracranial abnormality. CXR IMPRESSION: Negative chest. C-SPINE CT IMPRESSION: 1. There is no evidence of fracture or subluxation involving the cervical spine. 2. Osteopenia and spondylotic change as above ECHO: * The left ventricle is normal in size. * There is normal left ventricular wall thickness. * Left ventricular systolic function is normal. * The left ventricular wall motion is normal. * Ejection Fraction = 60-65%. Pending Studies/Follow-Up: check CBC within 1-2 weeks, if WBC remains elevated - refer patient to hematology (case was discussed with Dr. Jasper Chavez) urine and blood cultures pending Medication Reconciliation Continued Medications: Multivitamin (Multivitamin) Tab 1 TAB PO DAILY, TAB Admission Information HPI (per Admitting provider): 61 year old female who presents to the ER for evaluation of a syncopal event. Patient donated blood today which she reports she does on a routine basis ( about every 3 months). Patient reports she woke up this morning feeling in her usual state of health. She ate breakfast and then went to donate blood. She reports she had something to eat after donating and reports that after she stood up she did not feel well. She felt very lightheaded. She sat down on the stool and the next thing she knew she woke up on the floor. She reports she was very clammy. She also had nausea and had 2 episodes of vomiting. She denies loss of bowel or bladder function. No reported seizure like activity. She denies associated chest pain or shortness of breath. Reports she has been feeling well recently. No fever or chills. Denies abdominal pain or diarrhea. No urinary symptoms. In the ER, vitals are stable. WBC is 18K without obvious source of infection. Head CT is negative. Creat is 1.3 (baseline 1.0-1.1). Patient was given IVF and Zofran. Physical Exam (per Admitting): General Appearance: no apparent distress Head: normocephalic Eyes: normal inspection ENT: hearing grossly normal Neck: supple, no JVD Respiratory/Chest: lungs clear, normal breath sounds, no respiratory distress Cardiovascular: regular rate, rhythm, no edema, normal peripheral pulses Abdomen/GI: normal bowel sounds, non tender, soft Extremities/Musculoskelatal: normal inspection, no calf tenderness Neurologic/Psych: no motor/sensory deficits, alert, normal mood/affect, oriented x 3 Skin: normal color, warm/dry Hospital Course SYNCOPE - admitted to tele - patient presenting with syncopal event shortly after donating blood; nothing in the history to suggest seizure like activity - likely vasovagal vs orthostasis/hypovolemia - creat mildly bumped at 1.3 (baseline 1.0 - 1.1), improved to 1.0 today after IVF - orthostatic BPs negative - no acute ST changes on EKG, prolonged QTC noted - no arrhythmias on tele - mild bradycardia noted, however at baseline per clinic records - troponins negative, echo unremarkable - head CT negative LEUKOCYTOSIS - WBC 18K -> 27K - no obvious source of infection identified, has remained afebrile - urine and blood cultures pending - no lymphocytes noted on differential, H/H stable - discussed with Dr. Jasper Chavez - recommends repeating CBC in 1-2 weeks and if does not resolve, he will see her as an outpatient CKD STAGE III - baseline creat 1.0 - 1.1 - 1.3 on admission, improved to 1.0 after IVF Total time spent on discharge = 30 minutes This includes examination of the patient, discharge planning, medication reconciliation, and communication with other providers. Discharge Instructions Discharge Instructions Admission Reason for Admission: Syncope Discharge Discharge Diagnosis / Problem: Passed Out Discharge Goals Goal(s): Decrease discomfort, Improve function Activity Recommendations Activity Limitations: resume your previous activity . Instructions / Follow-Up Instructions / Follow-Up Follow Up with Dr. Claudio SaturdaySeptember 05 at 11:30 You were admitted to the hospital for evaluation of a syncopal event (passing out) This was felt to be due to your recent blood donation. We did find your WBC to be elevated however no obvious signs of infection. Your blood and urine cultures are still pending - if these are positive, you will receive a phone call. Your PCP will recheck your bloodwork and if it does not improve, you will need to see hematology. If you develop a fever, call your PCP or return to the emergency room. Current Hospital Diet Patient's current hospital diet: Regular Diet Discharge Diet Recommended Diet: Regular Diet Pending Studies Studies pending at discharge: yes List of pending studies: urine and blood cultures Medical Emergencies . Who to Call and When: Medical Emergencies: If at any time you feel your situation is an emergency, please call 911 immediately. . Non-Emergent Contact Non-Emergency issues call your: Primary Care Provider Call Non-Emergent contact if: you have a fever, you have any medication questions . . "Provider Documentation" section prepared by Manasa Justin. VTE Core Measure Inpt VTE Proph given/why not?: SCD's
[2016-08-30 15:17] VITALS: BP 102/63; PULSE 64; TEMP 36.8; O2SAT 96
[2016-08-30 15:37] VITALS: BP 102/63; PULSE 64; TEMP 36.8; O2SAT 96
== END 2016-08-30 16:15 | disposition home or self-care (01) ==
LOC: ENRESERVTM → ENRESERVDT → EDBD 13:35 → C.EDB 13:36 → C.MED 16:23
PROVIDERS: ADMIT Internal Medicine; ATTEND Internal Medicine
DX: R55 Syncope and collapse (principal); D72.829 Elevated white blood cell count, unspecified; R00.1 Bradycardia, unspecified; N18.3 Chronic kidney disease, stage 3 (moderate); Z90.49 Acquired absence of other specified parts of digestive tract; Z87.891 Personal history of nicotine dependence; Z88.5 Allergy status to narcotic agent